=== PATIENT | female | born 1945 | race Caucasian/White ===

== ENCOUNTER → 2018-06-22 | Outpatient (CLI) | payer MEDICARE, OTHER ==
[~2018-06-22] MED LIST: ANTIVERT 25MG25 MG PO; VALIUM 2MG T2 MG/TAB PO; ZOFRAN ODT4 MG PO
== END ==
LOC: MC.RAD 05-26 13:00
DX: Z12.31 Encounter for screening mammogram for malignant neoplasm of breast (principal)

== ENCOUNTER → 2019-08-28 | Outpatient (CLI) | payer MEDICARE, OTHER | LOC: MC.RAD 07-19 08:45 | DX: Z12.31 Encounter for screening mammogram for malignant neoplasm of breast (principal) ==